=== PATIENT | female | born 1975 | race American Indian/Alaskan Native ===

== ENCOUNTER 2021-11-23 17:08 | Emergency (ER) | payer OTHER ==
[2021-11-23 23:57] VITALS: BP 175/93
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
[2021-11-24 08:34] LABS: Mean Corpuscular HGB Conc 30 % (30-34); Platelet Count 336 K/mm3 (140-440); Red Blood Count 5.27 M/mm3 (3.65-5.03); Red Cell Distribution Width 19.4 % (13.2-15.2)
[2021-11-24 08:36] LABS: Hematocrit 36.7 % (30.3-42.9); Hemoglobin 11.1 gm/dl (10.1-14.3); Mean Corpuscular Volume 70 fl (79-97)
--- NOTE | 2021-11-24 08:42 | Electrocardiograph Report ---
[facility] Test Date: 2021-11-24 Test Time: 07:50:06 Pat Name: NIALL SCHREIBER Department: Room: Gender: F Legal Intern: CARMEN : 1975 Requested By: RONDA NEGRON Order Number: [id number] Reading MD: Husam Johnson Measurements Intervals War Rate: 109 P: 69 MI: 166 QRS: 8 QRSD: 88 T: 2 QT: 330 QTc: 444 Interpretive Statements Sinus tachycardia Probable left atrial enlargement nonspecific st-t No previous ECG available for comparison Electronically Signed On 11-24-2021 8:41:54 EDT by Husam Johnson
[2021-11-24 08:43] LABS: Alanine Aminotransferase 30 units/L (7-56); Albumin 4.6 g/dL (3.9-5); BUN/Creatinine Ratio 17; Blood Urea Nitrogen 12 mg/dL (7-17); Calcium 9.7 mg/dL (8.4-10.2); Hemolysis Index 0
--- NOTE | 2021-11-24 12:56 | XRay Report ---
CHEST 2 VIEWS INDICATION: CP. COMPARISON: None. FINDINGS: Support devices: None. Heart: Within normal limits. Lungs/Pleura: No acute air space or interstitial disease. No significant pleural effusion. IMPRESSION: No acute findings. Signer Name: Yony Marroquin MD Signed: 11/24/2021 12:52 PM Workstation Name: [id number]
[2021-11-24] MEDS ORDERED: SODIUM CHLORIDE 0.9% 1000 ML 1,000 ML IV ONE ×2 (23:25→23:26)
[2021-11-25] MEDS ORDERED: SODIUM CHLORIDE 0.9% 1000 ML 2,000 ML ONE (02:50)
[2021-11-25 03:18] LABS: Color,Urine Colorless (Yellow)
[2021-11-25 03:19] LABS: Mucus,Urine FEW /HPF
[2021-11-25 03:23] LABS: HCG Qualitative,Urine Negative (Negative)
[2021-11-25] MEDS ORDERED: INSULIN REGULAR, HUMAN 100 UNITS/1 ML IV ONE (03:31)
--- NOTE | 2021-11-25 03:32 | Emergency Department Report ---
ED General Adult HPI - General Chief complaint: Hyperglycemia Stated complaint: HIGH BLOOD SUGAR PUI?: No Time Seen by Provider: 11/24/21 07:34 Source: patient Mode of arrival: Ambulatory Limitations: No Limitations - History of Present Illness Initial comments: Patient is a 46-year-old -[place] female with a history of taj-oqzvsde-[id number] diabetes and hypertension who presents to the ED with complaint of acute onset persistent intermittent elevated blood sugar for the last 1 week. Patient states that she takes metformin 500 mg twice a day regularly. Patient also complains of vaginal irritation with discharge and itching suspicious for yeast infection due to her poorly controlled diabetes. Patient denies chest pain, shortness of breath, fever, chills, dysuria, vaginal bleeding, nausea and vomiting or diarrhea, back pain, cough, sore throat, headache or lightheadedness, dizziness and syncope. MD Complaint: Elevated blood sugar; vaginal itching and irritation -: Gradual, week(s) (1) Location: genitals Radiation: non-radiation Severity scale (0 -10): 7 Quality: burning, aching, dull Consistency: constant Improves with: none Worsens with: none Associated Symptoms: denies other symptoms, chest pain. denies: cough, diaphoresis, fever/chills, headaches, loss of appetite, malaise, nausea/vomiting, rash, shortness of breath, syncope, weakness Treatments Prior to Arrival: none - Related Data Previous Rx's Medication Instructions Recorded Last Taken Type Fluconazole (Nf) [Diflucan TAB] 150 mg PO ONCE #3 tablet 11/25/21 Unknown Rx Metformin HCl [metFORMIN] 1,000 mg PO Q12H #60 tab 11/25/21 Unknown Rx Allergies Allergy/AdvReac Type Severity Reaction Status Date / Time morphine Allergy Rash Verified 11/23/21 18:19 ED Review of Systems ROS: Stated complaint: HIGH BLOOD SUGAR Other details as noted in HPI Constitutional: other (elevated blood sugar). denies: chills, fever Eyes: denies: eye pain, eye discharge, vision change ENT: denies: ear pain, throat pain Respiratory: denies: cough, shortness of breath, wheezing Cardiovascular: denies: chest pain, palpitations Endocrine: no symptoms reported Gastrointestinal: denies: abdominal pain, nausea, vomiting, diarrhea Genitourinary: urgency, dysuria, frequency, discharge, other (vaginal itching with irritation) Musculoskeletal: denies: back pain, joint swelling, arthralgia Skin: denies: rash, lesions Neurological: denies: headache, weakness, paresthesias Psychiatric: denies: anxiety, depression Hematological/Lymphatic: denies: easy bleeding, easy bruising ED Past Medical Hx - Past Medical History Previous Medical History?: Yes Hx Hypertension: Yes Hx Diabetes: Yes - Surgical History Past Surgical History?: Yes Additional Surgical History: tubal; achilles; hernia - Social History Smoking Status: Never Smoker Substance Use Type: None - Medications Home Medications: Home Medications Medication Instructions Recorded Confirmed Last Taken Type Fluconazole (Nf) [Diflucan TAB] 150 mg PO ONCE #3 tablet 11/25/21 Unknown Rx Metformin HCl [metFORMIN] 1,000 mg PO Q12H #60 tab 11/25/21 Unknown Rx ED Physical Exam - General Limitations: No Limitations General appearance: alert, in no apparent distress - Head Head exam: Present: atraumatic, normocephalic, normal inspection - Eye Eye exam: Present: normal appearance, PERRL, EOMI Pupils: Present: normal accommodation - ENT ENT exam: Present: normal exam, normal orophraynx, mucous membranes moist, TM's normal bilaterally, normal external ear exam - Neck Neck exam: Present: normal inspection, full ROM - Respiratory Respiratory exam: Present: normal lung sounds bilaterally. Absent: respiratory distress, wheezes, rales, rhonchi, chest wall tenderness, accessory muscle use, decreased breath sounds, prolonged expiratory - Cardiovascular Cardiovascular Exam: Present: normal rhythm, tachycardia, normal heart sounds. Absent: systolic murmur, diastolic murmur, rubs, gallop - GI/Abdominal GI/Abdominal exam: Present: soft, normal bowel sounds. Absent: tenderness, guar ding, rebound, hyperactive bowel sounds, hypoactive bowel sounds, organomegaly, bruit, pulsatile mass - Extremities Exam Extremities exam: Present: normal inspection, full ROM, normal capillary refill. Absent: tenderness - Back Exam Back exam: Present: normal inspection, full ROM. Absent: tenderness, CVA tenderness (R), CVA tenderness (L), muscle spasm, paraspinal tenderness, vertebral tenderness - Neurological Exam Neurological exam: Present: alert, oriented X3, CN II-XII intact, normal gait, reflexes normal - Psychiatric Psychiatric exam: Present: normal affect, normal mood - Skin Skin exam: Present: warm, dry, intact, normal color. Absent: rash ED Course Vital Signs 11/23/21 11/23/21 11/25/21 18:15 23:52 03:00 Temperature 98.4 F 98.3 F Pulse Rate 118 H 118 H 88 Respiratory 14 18 16 Rate Blood Pressure 135/82 175/93 [Right] O2 Sat by Pulse 100 98 100 Oximetry ED Medical Decision Making - Lab Data Result diagrams: 11/24/21 07:44 11/24/21 07:44 - Medical Decision Making This is a 46-year-old -[place] female with a history of ulc-lyjleto-tepsfzpwy diabetes and hypertension who presents to the ED with comp laint of acute onset persistent intermittent elevated blood sugar for the last 1 week. Patient states that she takes metformin 500 mg twice a day regularly. Patient also complains of vaginal irritation with discharge and itching suspicious for yeast infection due to her poorly controlled diabetes. In the ED, patient is alert and oriented x3 and is not in any distress. Patient is however tachycardic but afebrile in triage. Lab test results were reviewed and showed hyperglycemia 444 mg/dL. Urinalysis is unremarkable and the rest of the lab test results were nonactionable. Patient was treated in the ED with normal saline 1 L IV bolus x1 and on reevaluation, patient [id number] blood glucose was 257 mg/dL. On reevaluation, patient hyperglycemia improved and patient was discharged home with an increased dose of metformin to 1000 mg twice a day and advised to follow-up with her primary care physician in 7 to 10 days for reevaluation or return to the ED immediately if symptoms get worse. - Differential Diagnosis Summer vaginitis; Hyperglycemia; dehydration; UTI Critical care attestation.: If time is entered above; I have spent that time in minutes in the direct care of this critically ill patient, excluding procedure time. ED Disposition Clinical Impression: Vaginal irritation, Summer vaginitis Hyperglycemia due to type 2 diabetes mellitus Qualifiers: Diabetes mellitus residential insulin use: without bed bug exterminator use Qualified Code(s): E11.65 - Type 2 diabetes mellitus with hyperglycemia Disposition: HOME / SELF CARE / HOMELESS Is pt being admited?: No Does the pt Need Aspirin: No Condition: Stable Instructions: Vaginitis, Usql-gn-Xqnm, Diabetes Mellitus and Sick Day M anagement, Type 2 Diabetes Mellitus, Self Care, Adult, [id number], Diabetes Mellitus Type 2 in Adults (ED) Additional Instructions: Take medication with food, drink plenty of fluids, follow-up with your primary care physician in 7 to 10 days for reevaluation. Return to the ED immediately if symptoms get worse. Prescriptions: Fluconazole (Nf) [Diflucan TAB] 150 mg PO ONCE #3 tablet Metformin HCl [metFORMIN] 1,000 mg PO Q12H #60 tab Referrals: MORIS PEDERSEN MD [Primary Care Provider] - 3-5 Days Forms: Work/School Release Form(ED) Time of Disposition: 03:33 Print Language: CHINESE
== END 2021-11-25 04:42 | disposition home or self-care (01) ==
LOC: ED 17:08
DX: E11.65 Type 2 diabetes mellitus with hyperglycemia (principal); N89.8 Other specified noninflammatory disorders of vagina; B37.3 Candidiasis of vulva and vagina; I10 Essential (primary) hypertension; Z91.09 Other allergy status, other than to drugs and biological substances
CPT/HCPCS: 36415; 71046; 80053; 81001; 81025; 82010; 82805; 82962; 84484; 85027; 93005; 96360; 99284; J7030; Q9967; J1815